=== PATIENT | female | born 1945 | race Caucasian/White ===

== ENCOUNTER 2025-08-20 01:22 | Emergency (ER) | payer MEDICARE, OTHER ==
[~2025-08-20] VITALS: Ht 162.6 cm; Wt 75.0 kg
[~2025-08-20 01:22] MED LIST: ASPI-1071 PO; ATOR20TA66 PO; BENA1TAB14 PO; CARV-164 PO; EXEM25TA5 PO; ISOS30TA84 PO; NITR0.4T51 SL; SYN0.088T PO
--- NOTE | 2025-08-20 01:57 | Physician Documentation ---
History of Present Illness ~ Chief Complaint: Shoulder pain Stated Complaint: SHOULDER PAIN Time Seen by MD: 01:56 HPI 80-year-old female, history of angina 1 time in the past, who presents with chest pain. She tells me that she had a normal day. She was woken from sleep tonight, with pain in her chest. She tells me it was located in her posterior chest around her shoulder blade and radiated down her left arm. She felt short of breath and nauseous. It lasted for about an hour. Currently she is asymptomatic. She reports a history of something similar about 9 months ago. She was diagnosed with angina. She had a stress test that was borderline. She was scheduled for repeat stress test in about 2 weeks. Take a daily aspirin and took it today. She did not take a nitroglycerin or other treatment tonight. No fevers, productive cough, leg pain or swelling, or other associated symptoms Medication Reconciliation Allergies: Coded Allergies: No Known Allergies (Unverified , 08/20/25) Scheduled Aspirin (Ecotrin*), 1 TAB PO DAILY Atorvastatin Calcium (Atorvastatin Calcium), 80 MG PO HS Benazepril/Hydrochlorothiazide (Benazepril-Hctz 20-12.5 mg Tab), 1 TAB PO DAILY, (Reported) Carvedilol (Carvedilol), 3.125 MG PO BID Isosorbide Mononitrate (Isosorbide Mononitrate Er), 60 MG PO Q24H Levothyroxine Sodium* (Synthroid*), 1 TAB PO DAILY, (Reported) Scheduled PRN Exemestane (Exemestane), 25 MG PO DAILY PRN for AFTER A MEAL, (Reported) Nitroglycerin SL* (Nitrostat SL*), 0.4 MG SL Q5MIN PRN for chest pain Past Medical History Patient History: FH: CHF (congestive heart failure) (Father,) FH: coronary artery disease (Mother) Alcohol Use: None Drug Use: none Lives with: Spouse Lives In: Home Review of Systems Constitutional: Denies: fever Respiratory: Reports: shortness of breath Cardiovascular: Reports: chest pain Gastrointestinal: Reports: nausea Physical Exam Vital Signs: Temperature: 97.6, Heart Rate: 62, Respiratory Rate: 18, BP: 210/95, Pulse Oximetry: 97, Weight: 75.000 Physical Exam General: This is a pleasant and very well-appearing older woman, at bedside HEENT: Atraumatic, oropharynx is moist Heart: Regular rate and rhythm, appears sinus rhythm on the monitor, normal- appearing peripheral perfusion Lungs: Clear breath sounds bilateral, normal work of breathing, normal oxygen saturation on room air Chest wall: No reproducible tenderness on palpation of the posterior chest Abdomen: Soft, nondistended, nontender all quadrants Extremities: Warm and well-perfused, no significant edema Neuro: Alert and oriented Psychiatric: Calm and cooperative with exam Progress Results/Orders Results/Orders Orders - MISSAEL ORTA MD Shoulder, Complete (Min 2 Vws) (08/20/25 01:32) Chest,Single View (08/20/25 01:32) Monitor (08/20/25 01:32) Saline Lock (08/20/25 01:32) Oxygen (08/20/25 01:32) Hs Troponin I W Calculations (08/20/25 04:32) Completed Orders - MISSAEL ORTA MD Stat Ekg (08/20/25 01:32) Shoulder, Complete (Min 2 Vws) (08/20/25 01:32) Chest,Single View (08/20/25 01:32) Cbc/Diff (08/20/25 01:32) BMP (08/20/25 01:32) PBNP (08/20/25 01:32) Hs Troponin I W Calculations (08/20/25 01:32) Hs Troponin I W Calculations (08/20/25 03:32) Vital Signs 08/20/25 08/20/25 08/20/25 08/20/25 01:29 03:18 03:39 04:36 Temp 97.6 98.1 Pulse 62 66 70 Resp 18 18 18 16 B/P (MAP) 210/95 183/73 (109) 110/76 Pulse Ox 97 95 99 Laboratory Tests Test 08/20/25 01:58 08/20/25 03:45 White Blood Count 4.4 L Red Blood Count 4.00 L Hemoglobin 12.6 Hematocrit 36.6 Mean Corpuscular Volume 91.5 Mean Corpuscular Hemoglobin 31.5 H Mean Corpuscular Hemoglobin Concent 34.4 Red Cell Distribution Width 13.2 Platelet Count 198 Mean Platelet Volume 7.6 Neutrophils (%) (Auto) 58.1 Lymphocytes (%) (Auto) 24.1 Monocytes (%) (Auto) 12.6 H Eosinophils (%) (Auto) 3.7 Basophils (%) (Auto) 1.5 H Neutrophils # (Auto) 2.6 Lymphocytes # (Auto) 1.1 Monocytes # (Auto) 0.6 Eosinophils # (Auto) 0.2 Basophils # (Auto) 0.1 CBC Comment Sodium Level 145 Potassium Level 3.8 Chloride Level 108 H Carbon Dioxide Level 28.9 Anion Gap 8 Blood Urea Nitrogen 27 H Creatinine 1.12 H Estimated GFR/1.73 m2 47 BUN/Creatinine Ratio 24.1 H Glucose Level 99 Calcium Level 9.4 Troponin I High Sensitivity 8 10 Pro-B-Type Natriuretic Peptide 284 Albumin 3.4 Chemistry Comments Troponin I High Sens Percent Delta 25 Troponin I Hi Sens Absolute Change 2 EKG/XRAY/CT/US/VASC/MRI EKG : Additional Comment Sinus rhythm, rate 61, QTC 415, no acute STEMI Chest X-Ray : Additional Comments I personally interpreted the x-ray, and it shows: No focal consolidation, pneumothorax, or mediastinal widening Bone/Soft Tissue X-Ray (Ext.) : Additional Comment I personally interpreted the x-ray, and it shows: The shoulder x-ray ordered from triage did not show a broken bone or dislocation Heart Score: Heart Score Response (Comments) Value History Highly Suspicious 2 EKG Normal 0 Age >65 2 Risk Factors 1 or 2 risk factors 1 Troponin Normal limit 0 Total 5 Medical Decision Making Heart Score: 5 Differential Dx:Considerations: Include: angina, aortic dissection, chest wall pain, CHF, costochondritis, gastritis, myocardial infarction, pneumonia, pneumothorax Additional Information Patient presents with an episode of posterior chest pain radiating down her arm. She does have a history of angina in the past. Her workup is reassuring including a normal EKG and 2 normal troponins. She was asymptomatic while observed here in the emergency department. I did offer admission for a repeat stress test and further cardiac evaluation, but she declined, preferred to just go home. She already has an outpatient stress test scheduled. She has nitroglycerin at home. She was given home care instructions including treatment for angina, and return precautions. Overall, the exact cause of her pain is u nclear, but angina seems possible. No other dangerous cause identified. Departure Time of Disposition: 04:29 Disposition: 01 HOME / SELF CARE / HOMELESS Impression: Primary Impression: Chest pain Condition: Stable Discharge Instructions: Angina Referrals: NO PRIMARY CARE PROVIDER (PCP) Education Educated: Patient, Family Educated regarding: diagnosis, treatment, need for follow up Signature Scribe Signature: na Attestation: MISSAEL Crowley MD Aug 20, 2025 01:57
--- NOTE | 2025-08-20 02:10 | ELECTROCARDIOGRAPH REPORT ---
[facility] Test Date: 2025-08-20 Test Time: 02:06:39 Pat Name: NABEEL MORALES Department: [facility] Patient ID: [facility]-[id number] Room: Gender: F [employer]: : 1945 Requested By: MISSAEL ORTA Order Number: [id number] Reading MD: Measurements Intervals [place] Rate: 61 P: 65 OK: 177 QRS: 51 QRSD: 83 T: 59 QT: 412 QTc: 415 Interpretive Statements Sinus rhythm Please click the below link to view image of tracing.
[2025-08-20 02:19] LABS: MEAN PLATELET VOLUME 7.6 FL (7.4-10.4); RED CELL DISTRIBUTION WIDTH 13.2 % (11.5-14.5)
--- NOTE | 2025-08-20 02:29 | RADIOLOGY REPORT ---
CHEST RADIOGRAPH Indication: CP Technique: Single frontal view of the chest was obtained COMPARISON: DI CHEST,SINGLE VIEW on DOS: 11/09/24 FINDINGS: Lines and Tubes: None Lungs: Clear Pleura: No effusion. No pneumothorax. Cardiomediastinal contours: Unremarkable Bones: Unremarkable IMPRESSION: 1. No acute disease.
--- NOTE | 2025-08-20 02:30 | RADIOLOGY REPORT ---
CLINICAL INDICATION: Pain TECHNIQUE: DI SHOULDER, COMPLETE (MIN 2 VWS) Comparison: None FINDINGS/IMPRESSION: : There is no evidence of acute fracture or dislocation. Soft tissues are unremarkable.
[2025-08-20 02:48] LABS: CREATININE 1.12 MG/DL (0.40-0.90); PRO BRAIN NATRIURETIC PEPTIDE 284 PG/ML (0-450); TOTAL CARBON DIOXIDE 28.9 MMOL/L (24-32); eCRCL 36 ML/MIN; eGFR 47 ML/MIN
[2025-08-20 04:36] VITALS: BP 110/76; PULSE 70; RESP 16; TEMP 98.1; O2SAT 99
== END 2025-08-20 04:56 | disposition home or self-care (01) ==
LOC: ER 01:23
DX: R07.9 Chest pain, unspecified (principal); Z79.82 Long term (current) use of aspirin; Z79.899 Other long term (current) drug therapy
CPT/HCPCS: 36415; 71045; 73030; 80048; 83880; 84484; 85025; 93005; 99285